=== PATIENT | male | born 1950 | race Caucasian/White ===

== ENCOUNTER → 2019-02-26 09:45 | Outpatient (CLI) | payer MEDICARE, SELFPAY ==
--- NOTE | 2019-02-26 | DI.MRI.S_ITS ---
PROCEDURE: MR SHOULDER RT WO CON INDICATIONS: Pain in right shoulder TECHNIQUE: Noncontrast oblique coronal T2 fast spin echo with fat saturation, oblique sagittal T1 spin echo and T2 fast spin echo with fat saturation, axial T1 spin echo and T2 fast spin echo with fat saturation through the shoulder. COMPARISON: [facility], CR, CHEST 2 VIEW, 08/09/2011, 10:37. FINDINGS: Image quality: Excellent. Rotator cuff: There is partial-thickness tear of the supraspinatus tendon involving a footprint. No tendon retraction or muscle atrophy. There is thickening, irregularly and increased signal of the infraspinatus and subscapularis tendon consistent with tendinitis. Bones and bursae: No bone marrow contusions or fractures. There is severe acromioclavicular and glenohumeral joint degeneration. The acromion demonstrates conventional anatomy, without an os acromiale. No pathologic subacromial-subdeltoid or subcoracoid bursal fluid is present. Capsule and soft tissues: There is degenerative fraying of the glenoid labrum. In the absence of intra-articular contrast, the glenohumeral ligaments appear intact. The long head of the biceps tendon demonstrates normal location and morphology. The rotator interval appears normal, without fibrosis. The coracohumeral ligament is normal in thickness. There is moderate joint effusion. IMPRESSION: 1. Partial-thickness tear of the supraspinatus tendon without tendon retraction or muscle atrophy. 2. Infraspinatus and subscapularis tendinitis. 3. Severe acromioclavicular and glenohumeral joint degeneration. 4. Degenerative fraying of the glenoid labrum. 5. Moderate joint effusion. Dictated by: Rashawn Sabillon M.D. on 02/26/2019 at 16:39 Approved by: Rashawn Sabillon M.D. on 02/26/2019 at 17:52
== END ==
PROVIDERS: Family Provider Orthopaedic Surgery; PCP Family Medicine Geriatric Medicine; Visit Provider Family Medicine Geriatric Medicine
DX: M25.511 Pain in right shoulder (principal); M75.111 Incomplete rotator cuff tear or rupture of right shoulder, not specified as traumatic; M19.011 Primary osteoarthritis, right shoulder; M75.91 Shoulder lesion, unspecified, right shoulder; M25.411 Effusion, right shoulder
CPT/HCPCS: 73221

== ENCOUNTER → 2020-04-03 09:31 | Outpatient (CLI) | payer OTHER, SELFPAY ==
--- NOTE | 2020-04-03 09:48 | DI.ECHO.S_ITS ---
Echocardiogram Report + + :Name: DARA PATHAK Study Date: 04/03/2020 Height: 73 in : :[facility] Weight: 294 lb : : Gender: Male BSA: 2.5 m2 : :: 1950 Age: 69 yrs BP: 133/76 mmHg: :Reason For Study: DYSPNEA : :Ordering Physician: COURTNEY : :SHRADDHA Performed By: Aaliyah Stuart : :Referring: SHRADDHA VALDEZ : + + Interpretation Summary The left ventricle is normal in size. The ejection fraction is estimated to be 60-65%. The right ventricle is grossly normal size. The right ventricular systolic function is normal. There is mild aortic regurgitation. The IVC is of normal diameter and collapses greater than 50% with a sniff. This suggests a low right atrial pressure of 3 mm Hg. Procedure: A two-dimensional transthoracic echocardiogram with color flow and Doppler was performed. The study quality was technically adequate. There is no prior echocardiogram noted for this patient. The patient was in sinus rhythm with heart rates between 65-76 bpm during the exam. The patient had a bundle branch block rhythm during the exam. Left Ventricle: The left ventricle is normal in size. The estimated left ventricular end diastolic volume is 130 ml. There is normal left ventricular wall thickness. There is no thrombus. The ejection fraction is estimated to be 60-65%. Septal motion is consistent with conduction abnormality. Diastolic parameters suggest a relaxation abnormality of the left ventricle, consistent with probable normal filling pressures. Right Ventricle: The right ventricle is grossly normal size. The right ventricular systolic function is normal. Atria: The left atrium is moderately dilated. The right atrium is normal in size. There is no Doppler evidence for an interatrial shunt. Mitral Valve: There is mild to moderate mitral annular calcification. The mitral valve leaflets are mildly calcified. There is trace mitral regurgitation. Aortic Valve: The aortic valve is not well visualized. The aortic valve is mildly calcified. There is discrete nodular thickening of the non- coronary cusp. There is no aortic valve stenosis. There is mild aortic regurgitation. Tricuspid Valve: The tricuspid valve is not well visualized, but is grossly normal. There is a trace or physiologic amount of tricuspid regurgitation. Pulmonary artery pressures cannot be estimated because of the lack of a measurable TR jet velocity but the IVC suggests a CVP of around 3 mmHg. Pulmonic Valve: The pulmonic valve is not well visualized. There is mild pulmonic regurgitation. Great Vessels: The aortic root is normal size. The ascending aorta is at the upper limits of normal in size. The IVC is of normal diameter and collapses greater than 50% with a sniff. This suggests a low right atrial pressure of 3 mm Hg. Pericardium/ Pleura There is no pericardial effusion. There is no pleural effusion. MMode/2D Measurements & Calculations LVIDd: 6.0 cm LVOT diam: 2.2 cm LVIDs: 4.1 cm Ao root diam: 3.6 cm FS: 32.0 % asc Aorta Diam: 3.7 cm IVSd: 0.81 cm Ao Arch Diam (Prox Trans): 3.7 cm LVPWd: 0.95 cm LV curtis. diameter/BSA (cm/m^2): 2.4 LV sys. diameter/BSA (cm/m^2): 1.6 LA A2 area: 31.1 cm2 RA long axis: 6.1 cm LA A4 area: 25.6 cm2 RA area: 16.2 cm2 LA length (vol): 5.9 cm RA vol: 36.2 ml LA vol: 115.4 ml RA : 14.3 ml/m2 LA vol index: 45.5 ml/m2 IVC diam: 1.8 cm RVD1 (basal): 3.1 cm TAPSE: 2.3 cm Doppler Measurements & Calculations Ao V2 max: 185.3 cm/sec LVOT Max Je: 106.8 cm/sec Ao V2 mean: 128.0 cm/sec LV V1 max P.6 mmHg Ao max P.7 mmHg LV V1 VTI: 24.4 cm Ao mean P.3 mmHg JULIA(I,D): 2.5 cm2 Ao V2 VTI: 39.1 cm JULIA(V,D): 2.3 cm2 sev ratio: 0.62 JULIA indexed to BSA (cm^2/m^2): 0.98 AI P1/2t: 711.9 msec AI dec slope: 171.4 cm/sec2 MV E max je: 85.7 cm/sec PA V2 max: 78.8 cm/sec MV A max je: 109.3 cm/sec PA V2 mean: 52.1 cm/sec MV E/A: 0.78 PA mean P.2 mmHg Med Peak E' Je: 9.2 cm/sec PA pr(Accel): 27.6 mmHg E/E' med: 9.3 Lat Peak E' Je: 13.6 cm/sec E/E' lat: 6.3 E/e' average: 7.8 MV dec time: 0.20 sec MVA(VTI): 2.9 cm2 MV V2 mean: 86.5 cm/sec SV(LVOT): 96.7 ml MV mean P.4 mmHg MV V2 VTI: 33.3 cm Reading Physician:01:17 PM
== END ==
PROVIDERS: Family Provider Orthopaedic Surgery; PCP Family Medicine; Referring Provider Family Medicine; Visit Provider Family Medicine
DX: R06.00 Dyspnea, unspecified (principal); I35.1 Nonrheumatic aortic (valve) insufficiency; I37.1 Nonrheumatic pulmonary valve insufficiency
CPT/HCPCS: 93306